=== PATIENT | male | born 1970 | race Asian ===

== ENCOUNTER → 2018-09-15 | Day surgery (SDC) | payer BC ==
[~2018-09-15] MED LIST: FENTANYL CITRATE/PF 100MCG/2 ML INJ ONE; OR PHACO EYE KIT ONE; PREOP PHACO EYE KIT ONE
[2018-09-15 13:10] VITALS: BP 114/85
== END | disposition home or self-care (01) ==
LOC: OR 09:45
PROVIDERS: ATTEND Ophthalmology
DX: H25.12 Age-related nuclear cataract, left eye (principal); Z88.0 Allergy status to penicillin
CPT/HCPCS: 66984; J3010; V2787